=== PATIENT | female | born 1960 | race Two or more races ===

== ENCOUNTER 2024-05-24 13:24 | Emergency (ER) | payer MEDICAID, SELFPAY ==
[2024-05-24 13:34] VITALS: BP 177/111; PULSE 100; RESP 18; TEMP 36.6; O2SAT 96; BMI 26.5
--- NOTE | 2024-05-24 13:42 | XR_ITS ---
Examination: Shoulder,right, 3 views Technique: Shoulder AP internal rotation, AP external rotation, Y view shoulder, 3 views Exam date and time :May 24, 2024 1405 hrs. Indications: Injury to the shoulder 2 months ago shoulder pain Findings: Prominent calcific tendinitis Mild osteoarthritis glenohumeral joint No fracture or shoulder dislocation Impression: Prominent calcific tendinitis
[2024-05-24] MEDS: KETOROLAC INJ 30 MG/ML VIAL IM (13:52)
--- NOTE | 2024-05-24 15:42 | EDNOTE_ITS ---
Upper Extremity Injury RME/HPI General Chief Complaint: Extremity Injury, Upper Stated Complaint: RIGHT SHOULDER PAIN AND HEADACHE Time Seen by Provider: 05/24/24 13:28 Arrival date/time: 05/24/24 13:24 63-year-old female presents emergency department complaint of right shoulder pain patient reports numbness ongoing for last couple of months. Patient reports that she was helping her son who has seizures and she injured her shoulder Limitations: no limitations Related Data Home Medications ?Medication ?Instructions ?Recorded ?Confirmed lisinopril 10 mg tablet 10 mg PO QDAY 03/01/19 loratadine 10 mg tablet (Claritin) 10 mg PO QDAY 03/01/19 metformin 850 mg tablet 750 mg PO QDAY 03/01/19 montelukast 10 mg tablet 10 mg PO QPM 03/01/19 (Singulair) sitagliptin phosphate 100 mg 100 mg PO QDAY 03/01/19 tablet (Januvia) Previous Rx's ?Medication ?Instructions ?Recorded albuterol sulfate 2.5 mg/0.5 mL 5 mg inhalation Q20M PRN shortness 08/04/18 solution for nebulization of breath or wheezing #30 ea cyclobenzaprine 10 mg tablet 10 mg PO TID PRN muscle spasm 10 05/24/24 days #30 tab-caps hydrocodone 5 mg-acetaminophen 325 1 tab PO BID PRN pain #10 tabs 05/24/24 mg tablet ibuprofen 800 mg tablet 800 mg PO TID PRN pain #30 tabs 05/24/24 Allergies Allergy/AdvReac Type Severity Reaction Status Date / Time codeine AdvReac Mild Vomiting Verified 05/24/24 13:27 Review of Systems Review of Systems Systems Reviewed: All systems reviewed, normal except as documented Constitutional Constitutional: Reports system reviewed and no additional complaints, except as documented, Denies fever(s) and Denies headache(s) Eyes Eyes: Reports system reviewed and no additional complaints, except as documented and Denies blurry vision ENT Ears, Nose, Mouth, and Throat: Reports system reviewed and no additional complaints, except as documented, Denies headache(s), Denies nasal congestion and Denies nasal discharge Cardiovascular Cardiovascular: Reports system reviewed and no additional complaints, except as documented, Denies chest pain and Denies dyspnea Respiratory Respiratory: Reports system reviewed and no additional complaints, except as documented, Denies chest congestion, Denies cough and Denies dyspnea Gastrointestinal Gastrointestinal: Reports system reviewed and no additional complaints, except as documented and Denies abdominal pain Musculoskeletal Musculoskeletal: Reports system reviewed and no additional complaints, except as documented, Reports arthralgias, Denies deformity, Denies joint swelling, Denies numbness, Reports stiffness and Denies tingling Integumentary/Breasts Skin/Breast: Reports system reviewed and no additional complaints, except as documented and Denies rash Neurologic Neurologic: Reports system reviewed and no additional complaints, except as documented, Reports as per HPI, Denies headache(s), Denies numbness and Denies tingling Past Medical History Past Medical History NEUROLOGIC: Negative Neurological Disorders CARDIAC: Negative Cardiac Disorders ED Exam General Limitations: Present no limitations General appearance: Present alert and in no apparent distress Head Head exam: Present atraumatic Eye Eye exam: Present normal appearance, PERRL and EOMI ENT ENT exam: Present normal exam, normal oropharynx and mucous membranes moist Neck Neck exam: Present normal inspection, full ROM and trachea midline Chest Chest inspection: Present normal inspection and symmetric chest wall rise Respiratory Respiratory exam: Present normal lung sounds bilaterally Cardiovascular Cardiovascular exam: Present regular rate, normal rhythm and normal heart sounds Abdominal Exam Abdominal exam: Present soft and normal bowel sounds Extremities Exam Extremities exam: Present full ROM, tenderness and normal capillary refill; Absent joint swelling Back Exam Back exam: Present normal inspection and full ROM Neurological Exam Neurological exam: Present alert, oriented X3 and CN II-XII intact Psychiatric Psychiatric exam: Present normal affect and normal mood Skin Skin exam: Present warm, dry, intact and normal color Course Quality Measures none Orders Category Date Time Status sling [Splint / Immobilizer] STAT Care 05/24/24 18:08 Active XR shoulder RT min 2V Stat Exams 05/24/24 13:42 Completed Ketorolac Inj [Toradol Inj] Med 05/24/24 13:42 Discontinued 30 mg IM X1 ONE Vital Signs Vital signs: Vital Signs Temperature 98 F 05/24/24 13:34 Pulse Rate 100 05/24/24 13:34 Respiratory Rate 18 05/24/24 13:34 Blood Pressure 177/111 H 05/24/24 13:34 Pulse Oximetry (%) 96 05/24/24 13:34 Oxygen Delivery Method Room Air 05/24/24 13:34 O2 saturation 96% room air within normal limits Extremity Injury MDM Narrative MDM Narrative:: 63-year-old female presents emergency department complaint of right shoulder pain patient reports numbness ongoing for last couple of months. Patient reports that she was helping her son who has seizures and she injured her shoulder On exam patient well-appearing patient does not appear ill or toxic patient does have decreased range of motion of the shoulder Patient placed in a sling X-rays obtained patient does have calcific tendinitis I did explain to the patient she will have to have an outpatient MRI and further evaluation with primary care doctor for referral to specialist Patient data External records reviewed:: [facility] previous records Clinical information provided by:: patient Social determinants that could affect healthcare access:: none Patient has the following chronic illnesses:: See history How is presenting disease/condition affected by chronic disease/condition?: caused by Evaluation data The following diagnostics were reviewed and interpreted by me:: radiology exam(s) Lab and/or radiology exams considered but not ordered:: Radiology obtain Interpretation Summary: Reviewed by me Medications / Prescriptions Medications or Prescriptions considered but not ordered:: Given Medication administrations:: Medication Administration History Discontinued Medications Ketorolac Tromethamine (Ketorolac Inj 30 Mg/Ml Vial) 30 mg IM X1 ONE Stop: 05/24/24 13:43 Last Admin: 05/24/24 13:52 Dose: 30 mg Documented By: OA Given Consultations Consultation(s) initiated? (list below): No Diagnosis Upper Extremity Injury Differential Diagnosis: other (Shoulder sprain, shoulder fracture) Most likely diagnosis given after review of the tests above:: Calcific tendinitis Admission Indicated Admission indicated?: not indicated Admission Request Was there a request for admission?: No Disposition Plan Disposition Plan: Discharge Discharge Attestation Discharge Attestation: The patient and all family members were given an opportunity to ask questions and understood the discharge instructions. Discharge instructions specifically effects, indications for sooner follow up or return to the emergency department, and the expected course of current diagnosis. Patient condition: Stable Discharge Plan Plan Patient Disposition: HOME (Self Care) Disposition Comment: Stable Prescriptions/Referrals Prescriptions/Med Rec: New cyclobenzaprine 10 mg tablet 10 mg PO TID PRN (Reason: muscle spasm) 10 Days Qty: 30 0RF ibuprofen 800 mg tablet 800 mg PO TID PRN (Reason: pain) Qty: 30 0RF hydrocodone-acetaminophen 5-325 mg tablet 1 tab PO BID MDD 10 PRN (Reason: pain) Qty: 10 0RF No Action metformin 850 mg tablet 750 mg PO QDAY Januvia 100 mg tablet 100 mg PO QDAY loratadine [Claritin] 10 mg tablet 10 mg PO QDAY montelukast [Singulair] 10 mg tablet 10 mg PO QPM lisinopril 10 mg tablet 10 mg PO QDAY albuterol sulfate 2.5 mg/0.5 mL solution for nebulization 5 mg INH Q20M PRN (Reason: shortness of breath or wheezing) Qty: 30 0RF Rx Instructions: for 3 doses Referrals: Fracisco Poon MD [Primary Care Provider] - 05/26/24 Problem List Clinical Impression: Calcific tendinitis Patient/Caregiver Discharge Instructions Education Materials: ED Tendonitis Additional Instructions: Please follow up with your primary care doctor in the next 24-48hrs for any worsening symptoms return here immediately Please request outpatient MRI and referral to specialist Print Language: Hungarian Stand Alone Forms: [employer] Award Info., Patient Portal Info Letter PA/SHANNAN Supervising Physician ADRIANNE/SHANNAN Supervising Physician: Dr Lerner
[2024-05-24 16:54] VITALS: BP 149/85
== END 2024-05-24 17:47 | disposition home or self-care (01) ==
PROVIDERS: Emergency Provider Emergency Medicine; PCP Family Medicine
DX: S49.91XA Unspecified injury of right shoulder and upper arm, initial encounter (principal); M75.31 Calcific tendinitis of right shoulder; X58.XXXA Exposure to other specified factors, initial encounter; Y93.F9 Activity, other caregiving
CPT/HCPCS: 73030; 96372; 99283; A4565; J1885

== ENCOUNTER 2024-06-03 12:33 | Emergency (ER) | payer MEDICAID, SELFPAY ==
[2024-06-03 12:33] VITALS: BMI 26.5
--- NOTE | 2024-06-03 12:41 | XR_ITS ---
Examination: CT brain head without contrast. 2-D sagittal coronal reconstructions Date and time of exam:June 03, 2024 1301 hours INDICATIONS: Onset generalized head pain today CTDI: vol (mGy):45.8 DLP: (mGycm):908 Technique: Multiple CT axial sections of the brain have been obtained, 5 mm slice thickness. Contrast has not been administered. 2-D sagittal, coronal reconstructions have been obtained Low dose protocols were performed. One or more of the following dose reduction techniques were used; automated exposure control, adjustment of the mA and/or KV according to patient size, use of iterative reconstruction technique. Findings: No significant ventricular enlargement. Intra-axial or extra-axial hemorrhage density is not seen. No mass effect or midline shift Basal cisterns are not remarkable. Fourth ventricle is midline. Cranial vault intact. Impression: Negative for acute hemorrhage, mass effect or midline shift
[2024-06-03 12:42] VITALS: BP 170/105; BP 178/113; PULSE 106; RESP 19; TEMP 36.7; O2SAT 97
--- NOTE | 2024-06-03 12:42 | XR_ITS ---
Examination: PA lateral chest 2 views TECHNIQUE: Upright PA lateral chest 2 views Exam date and time: June 03, 2024 1250 hours Comparison December 21, 2016 INDICATIONS: Hypertension with chest pain today. FINDINGS: Normal heart size Lungs are clear. Moderate thoracic spondylosis IMPRESSION: No active disease
--- NOTE | 2024-06-03 12:42 | PD.EDRME ---
Rapid Medical Screening Exam RME Arrival date/time: 06/03/24 12:33 63-year-old female presents emerged department complaints of elevated blood pressure and headache Chief Complaint: General Adult/Misc Complain Time Seen by Provider: 06/03/24 12:38
[2024-06-03 13:13] VITALS: BP 178/113; PULSE 106
[2024-06-03] MEDS: cloNIDine HCL 0.1 MG TABLET PO (13:13)
[2024-06-03 13:30] LABS: Basophils # (Auto) 0.1 Thou/mm3 (0.0-0.2); Basophils % (Auto) 1 % (0-2.5); Eosinophils # (Auto) 0.2 Thou/mm3 (0.0-0.5); Eosinophils % (Auto) 2 % (0-10); Hematocrit 44.8 % (36.0-46.0); Hemoglobin 15.1 g/dL (12.0-16.0); Immature Granulocytes % (Auto) 0 % (0-0); Immature Granulocytes Auto 0.02 Thou/mm3 (0.00-0.00); Lymphocytes % (Auto) 33 % (10-50); Mean Corpuscular HGB Conc 33.7 g/dl (31.0-37.0); Mean Corpuscular Hemoglobin 27.8 pg (25.0-35.0); Mean Corpuscular Volume 83 fL (80-100); Monocytes # (Auto) 0.4 Thou/mm3 (0.0-0.8); Monocytes % (Auto) 4 % (0-12); Neutrophils # (Auto) 5.4 Thou/mm3 (1.8-7.7); Neutrophils % (Auto) 60 % (37-80); Nucleated Red Blood Cell % 0 /100 WBC (0); Platelet Count 291 Thou/mm3 (140-440); RDW Standard Deviation 40.2 fL (36.4-46.3); Red Blood Count 5.43 Miln/mm3 (4.00-5.20); White Blood Count 9.1 Thou/mm3 (3.6-11.0)
[2024-06-03 13:49] LABS: Alanine Aminotransferase 26 U/L (10-49); Albumin, Serum 4.9 gm/dL (3.4-4.8); Albumin/Globulin Ratio 1.5 (1.2-2.2); Alkaline Phosphatase 90 U/L (46-116); Anion Gap 10 (7-16); Aspartate Amino Transferase 18 U/L (0-34); BUN/Creatinine Ratio 21 Ratio (12-20); Bilirubin,Total 0.3 mg/dL (0.3-1.2); Blood Urea Nitrogen 15 mg/dL (9-23); Calcium 9.6 mg/dL (8.3-10.6); Calcium (Corrected) 9.6 mg/dL (8.5-10.1); Carbon Dioxide 23.7 mMol/L (20.0-31.0); Chloride 103 mMol/L (98-107); Creatinine (Component) 0.7 mg/dL (0.6-1.3); Estimated Creatinine Clearance 74.2 mL/min (>60); Globulin 3.2 gm/dL (2.3-3.5); Glucose 109 mg/dL (74-106); Osmolality,Calculated 275 (275-295); Potassium 3.7 mMol/L (3.4-5.1); Sodium 137 mMol/L (136-145); Total Protein 8.1 gm/dL (5.7-8.2); Troponin I < 0.002 ng/mL (0.0-0.045); eGFR > 60 See Note
--- NOTE | 2024-06-03 15:03 | PD.EDADULT ---
ED General RME/HPI General Chief complaint: General Adult/Misc Complain Stated complaint: HIGH BP AT CVS 178/108 Time Seen by Provider: 06/03/24 12:38 Arrival date/time: 06/03/24 12:33 CC: Headache and mild chest pressure HPI onset this morning. The patient states she noticed that her blood pressure is high after checking it at the pharmacy and came into had it checked out, patient states she takes 10 mg of lisinopril each night, per her PCP and is doing it for approximately 1 year. Patient denies fever chills shortness of breath or difficulty breathing at this time. Denies any floaters or blurred vision. RME / HPI RME / HPI narrative: 06/03/24 12:33 63-year-old female presents emerged department complaints of elevated blood pressure and headache Related Data Home Medications ?Medication ?Instructions ?Recorded ?Confirmed lisinopril 10 mg tablet 10 mg PO QDAY 03/01/19 loratadine 10 mg tablet (Claritin) 10 mg PO QDAY 03/01/19 metformin 850 mg tablet 750 mg PO QDAY 03/01/19 montelukast 10 mg tablet 10 mg PO QPM 03/01/19 (Singulair) sitagliptin phosphate 100 mg 100 mg PO QDAY 03/01/19 tablet (Januvia) Previous Rx's ?Medication ?Instructions ?Recorded albuterol sulfate 2.5 mg/0.5 mL 5 mg inhalation Q20M PRN shortness 08/04/18 solution for nebulization of breath or wheezing #30 ea hydrocodone 5 mg-acetaminophen 325 1 tab PO BID PRN pain #10 tabs 05/24/24 mg tablet ibuprofen 800 mg tablet 800 mg PO TID PRN pain #30 tabs 05/24/24 Allergies Allergy/AdvReac Type Severity Reaction Status Date / Time codeine AdvReac Mild Vomiting Verified 06/03/24 12:35 Review of Systems Review of Systems Narrative Review of Systems: GEN: No fever, no chills, no weight loss EYES: No discharge, no visual changes, no pain HEENT: No ear pain, no congestion, no sore throat PULM: No shortness of breath, no cough, no congestion CV: No chest pain, no dyspnea on exertion, no palpitations GI: No nausea, no vomiting, no diarrhea, no pain, no constipation : No frequency, no urgency, no dysuria MUSC/SKEL: No joint pain, no back pain SKIN: No rash PSYCH: No hallucinations, no depression HEME/LYMPH: No easy bleeding or bruising tendencies NEURO: No weakness, + headache Past Medical History Past Medical History NEUROLOGIC: Negative Neurological Disorders CARDIAC: Positive Hypertension; Negative Cardiac Disorders or Congestive Heart Failure RESPIRATORY: Positive Asthma; Negative Chronic Obstructive Pulmonary Disease (COPD) GENITOURINARY: Negative Renal Disease ENDOCRINE: Positive Endocrine Disorders and Diabetes Mellitus Type 2; Negative Diabetes Mellitus Type 1 OTHER HISTORY: Positive Blood Transfusions Social History SMOKING STATUS: Never smoker ED Exam Narrative Physical exam: [General: Not in any acute distress Head normocephalic HEENT: Within acceptable limits Neck is supple nontender Chest equal chest rise nontender to palpation Respiratory: Clear to auscultation no wheezes crackles or rubs CV: Rate rhythm is regular no murmurs rubs or clicks Abdomen is soft nontender no masses positive bowel sounds all 4 quadrants Back: No CVA tenderness no spinous process tenderness from cervical spine thoracic and lumbar spine Skin: Intact no petechiae rash induration ulceration or crepitus Extremities: Moving all extremity against resistance cap refill less than 2 seconds neurosensory intact. No lower extremity edema Neuro: Awake alert oriented x3 Glascow coma 15 no focal deficits] Course Quality Measures none Orders Category Date Time Status EKG (ED ONLY) *Do not use* NOW Care 06/03/24 12:[address] head/brain wo con Stat Exams 06/03/24 12:41 Completed EKG (ED Only) Stat Exams 06/03/24 12:42 Ordered XR chest 2V Stat Exams 06/03/24 12:42 Completed CBC Stat Lab 06/03/24 13:10 Completed Comprehensive Metabolic Panel Stat Lab 06/03/24 13:10 Completed Troponin I Stat Lab 06/03/24 13:10 Completed cloNIDine HCL [Catapres] Med 06/03/24 12:41 Discontinued 0.1 mg PO X1 ONE Vital Signs Vital signs: Vital Signs Temperature 98.1 F 06/03/24 12:42 Pulse Rate 106 H 06/03/24 12:42 Respiratory Rate 19 06/03/24 12:42 Blood Pressure 178/113 H 06/03/24 12:42 Pulse Oximetry (%) 97 06/03/24 12:42 Oxygen Delivery Method Room Air 06/03/24 12:42 MDM Patient data External records reviewed:: [facility] previous records Clinical information provided by:: patient Social determinants that could affect healthcare access:: none Patient has the following chronic illnesses:: Hypertension How is presenting disease/condition affected by chronic disease/condition?: exacerbated by Evaluation data The following diagnostics were reviewed and interpreted by me:: lab results and radiology exam(s) Lab and/or radiology exams considered but not ordered:: EKG performed at the 1247 shows a ventricular rate of 9 9 [place] interval 154 QRS of 100 QTc of 405 this is sinus rhythm. Troponin is negative CBC shows no acute leukocytosis anemia thrombocytopenia CMP shows no acute electrolyte imbalances renal impairment transaminitis or T. bili elevation Chest x-ray as interpreted me read by radiology as negative for any acute finding CT of the head is negative for any acute finding as interpreted by me read by radiology. Interpretation Summary: Hypertension Medications Medications considered but not ordered:: None Medication administrations:: Medication Administration History Discontinued Medications Clonidine (Clonidine Hcl 0.1 Mg Tablet) 0.1 mg PO X1 ONE Stop: 06/03/24 12:42 Last Admin: 06/03/24 13:13 Dose: 0.1 mg Documented By: None Consultations Consultation(s) initiated? (list below): No Diagnosis Differential Diagnosis ED Complaint MDM: Hypertensive urgency hypertensive emergency Most likely diagnosis given after review of the tests above:: Hypertension poor medical management Admission Indicated Admission indicated?: not indicated Explain why admission is indicated or not indicated:: Stable for outpatient follow-up Admission Request Was there a request for admission?: No Disposition Plan Disposition Plan: Discharge Discharge Attestation Discharge Attestation: The patient and all family members were given an opportunity to ask questions and understood the discharge instructions. Discharge instructions specifically effects, indications for sooner follow up or return to the emergency department, and the expected course of current diagnosis. Patient condition: Stable Medical Decision Making Differential Diagnosis Differential Diagnosis: Hypertensive urgency hypertensive emergency Lab Data 06/03/24 13:10 06/03/24 13:10 Labs: Lab Results 06/03/24 Range/Units 13:10 WBC 9.1 (3.6-11.0) Thou/mm3 RBC 5.43 H (4.00-5.20) Miln/mm3 Hgb 15.1 (12.0-16.0) g/dL Hct 44.8 (36.0-46.0) % MCV 83 (80-100) fL MCH 27.8 (25.0-35.0) pg MCHC 33.7 (31.0-37.0) g/dl RDW Std Deviation 40.2 (36.4-46.3) fL Plt Count 291 (140-440) Thou/mm3 Neut % (Auto) 60 (37-80) % Lymph % (Auto) 33 (10-50) % [place] % (Auto) 4 (0-12) % Eos % (Auto) 2 (0-10) % Baso % (Auto) 1 (0-2.5) % Neut # (Auto) 5.4 (1.8-7.7) Thou/mm3 Lymph # (Auto) 3.0 (1.0-4.8) Thou/mm3 [place] # (Auto) 0.4 (0.0-0.8) Thou/mm3 Eos # (Auto) 0.2 (0.0-0.5) Thou/mm3 Baso # (Auto) 0.1 (0.0-0.2) Thou/mm3 Immature Gran # (Auto) 0.02 H (0.00-0.00) Thou/mm3 Absolute Nucleated RBC 0.00 (0.00-0.00) Thou/mm3 Immature Gran % 0 (0-0) % Nucleated RBC % 0 (0) /100 WBC Sodium 137 (136-145) mMol/L Potassium 3.7 (3.4-5.1) mMol/L Chloride 103 (98-107) mMol/L Carbon Dioxide 23.7 (20.0-31.0) mMol/L Anion Gap 10 (7-16) BUN 15 (9-23) mg/dL Creatinine 0.7 (0.6-1.3) mg/dL Estim Creat Clear Calc 74.2 (>60) mL/min eGFR > 60 (60 - ) See Note BUN/Creatinine Ratio 21 H (12-20) Ratio Glucose 109 H (74-106) mg/dL Calculated Osmolality 275 (275-295) Calcium 9.6 (8.3-10.6) mg/dL Corrected Calcium 9.6 (8.5-10.1) mg/dL Total Bilirubin 0.3 (0.3-1.2) mg/dL AST 18 (0-34) U/L ALT 26 (10-49) U/L Alkaline Phosphatase 90 (46-116) U/L Troponin I < 0.002 (0.0-0.045) ng/mL Total Protein 8.1 (5.7-8.2) gm/dL Albumin 4.9 H (3.4-4.8) gm/dL Globulin 3.2 (2.3-3.5) gm/dL Albumin/Globulin Ratio 1.5 (1.2-2.2) Discharge Plan Plan Patient Disposition: HOME (Self Care) Patient condition on transfer: Stable Prescriptions/Referrals Prescriptions/Med Rec: No Action metformin 850 mg tablet 750 mg PO QDAY Januvia 100 mg tablet 100 mg PO QDAY loratadine [Claritin] 10 mg tablet 10 mg PO QDAY montelukast [Singulair] 10 mg tablet 10 mg PO QPM lisinopril 10 mg tablet 10 mg PO QDAY albuterol sulfate 2.5 mg/0.5 mL solution for nebulization 5 mg INH Q20M PRN (Reason: shortness of breath or wheezing) Qty: 30 0RF Rx Instructions: for 3 doses ibuprofen 800 mg tablet 800 mg PO TID PRN (Reason: pain) Qty: 30 0RF hydrocodone-acetaminophen 5-325 mg tablet 1 tab PO BID MDD 10 PRN (Reason: pain) Qty: 10 0RF Referrals: Skyler Brasher PA-C [Primary Care Provider] - In 1 week Problem List Clinical Impression: Hypertension Patient/Caregiver Discharge Instructions Education Materials: ED High Blood Pressure ... Additional Instructions: Double up on your lisinopril to 20 mg every evening, record your blood pressure twice a week, and show it to your doctor at your next follow-up. If you have a worsening of symptoms in spite of these interventions return the emergency room for reevaluation. Print Language: Pakistani Stand Alone Forms: [employer] Award Info., Work/School Release, Patient Portal Info Letter ADRIANNE/SHANNAN Supervising Physician ADRIANNE/SHANNAN Supervising Physician: Tomás Preston ENP
[2024-06-03 15:04] VITALS: BP 128/84; PULSE 84
== END 2024-06-03 15:20 | disposition home or self-care (01) ==
PROVIDERS: Nurse Practitioner Primary Care; Emergency Provider Emergency Medicine; PCP Family Medicine
DX: I10 Essential (primary) hypertension (principal)
CPT/HCPCS: 36415; 70450; 71046; 80053; 81001; 84484; 85025; 93005; 99284; A9270

== ENCOUNTER → 2024-06-30 | Outpatient (CLI) | payer MEDICAID, SELFPAY ==
--- NOTE | 2024-06-30 09:45 | XR_ITS ---
MRI shoulder, right, without contrast. Date and time: June 30, 2024 1032 hours INDICATIONS: Right shoulder pain post injury 6 months ago, loss of function 50% abduction, diagnosis calcific tendinitis Technique: Multiple axial, sagittal and coronal sections of the shoulder have been obtained. Siemens high-resolution 1.5 Елена MRI scanner is utilized. Axial fat-suppressed sections, TR 2350, TE 18 T2-weighted coronal fat-saturated images, TR 3500, TE 7100 T1-weighted coronal images, TR 500, TE 15 T2-weighted sagittal fat-saturated images, TR 3500, TE 57 T1-weighted sagittal sections, TR 504, TE 13. Findings: Supraspinatus tendon insertion is suspicious for 20 mm full-thickness tear. Infraspinatus tendon insertion is intact. Subscapularis insertion is intact. Subscapularis bursa is not seen. Long head of the biceps is in the bicipital groove. No definite tear of the biceps superior labral anchor is seen. Retraction of the musculotendinous junction of the rotator cuff is mild. Tendinosis pattern is moderate. Distance between the acromium and humeral head is 5 mm Atrophy of the supraspinatus muscle is moderate. Atrophy of the infraspinatus muscle is moderate. Sagittal sections demonstrate a horizontal acromion. Acromioclavicular joint demonstrates moderate osteoarthritis. Osacromiale is not identified. Moderate osteoarthritis glenohumeral joint. Bony glenoid fossa on the sagittal sections does not demonstrate osseous defect. Occult fracture or area of avascular necrosis is not seen. Acromioclavicular joint separation is not visible. Defect in the posterolateral margin of the humeral head is not seen Impression: Recommend this patient return for MRI shoulder with intra-articular contrast to confirm 20 mm full-thickness tear supraspinatous tendon
== END | disposition home or self-care (01) ==
PROVIDERS: PCP Family Medicine; Referring Provider Physician Assistant Medical; Visit Provider Physician Assistant Medical
DX: S46.011A Strain of muscle(s) and tendon(s) of the rotator cuff of right shoulder, initial encounter (principal); X58.XXXA Exposure to other specified factors, initial encounter; M75.31 Calcific tendinitis of right shoulder
CPT/HCPCS: 73221

== ENCOUNTER 2024-07-29 13:17 | Emergency (ER) | payer BC, SELFPAY ==
[2024-07-29 13:49] VITALS: BP 146/84; PULSE 89; RESP 18; TEMP 37.2; O2SAT 96; BMI 29.2
--- NOTE | 2024-07-29 13:57 | XR_ITS ---
Examination: PA lateral chest 2 views TECHNIQUE: Upright PA lateral chest 2 views Exam date and time: July 29, 2024 1408 hours Comparison June 03, 2024 INDICATIONS: Coughing shortness of breath beginning 3 days ago. FINDINGS: Normal heart size Suspicious for early pneumonia in the right middle lobe on the lateral view No pulmonary edema IMPRESSION: Suspicious for early pneumonia in the right middle lobe
--- NOTE | 2024-07-29 15:43 | PD.EDSOB ---
ED SOB =RME/HPI General Chief Complaint: Shortness of Breath/Dyspnea Stated Complaint: WANTS CXR, R/O PNA, SOB X3 DAYS Time Seen by Provider: 07/29/24 13:50 Arrival date/time: 07/29/24 13:17 63-year-old female with history of asthma recently diagnosed with influenza presents to the emergency department today complaints of cough, congestion, body aches Limitations: no limitations Related Data Home Medications ?Medication ?Instructions ?Recorded ?Confirmed lisinopril 10 mg tablet 10 mg PO QDAY 03/01/19 loratadine 10 mg tablet (Claritin) 10 mg PO QDAY 03/01/19 metformin 850 mg tablet 750 mg PO QDAY 03/01/19 montelukast 10 mg tablet 10 mg PO QPM 03/01/19 (Singulair) sitagliptin phosphate 100 mg 100 mg PO QDAY 03/01/19 tablet (Januvia) Previous Rx's ?Medication ?Instructions ?Recorded albuterol sulfate 2.5 mg/0.5 mL 5 mg inhalation Q20M PRN shortness 08/04/18 solution for nebulization of breath or wheezing #30 ea hydrocodone 5 mg-acetaminophen 325 1 tab PO BID PRN pain #10 tabs 05/24/24 mg tablet ibuprofen 800 mg tablet 800 mg PO TID PRN pain #30 tabs 05/24/24 azithromycin 500 mg tablet See Rx Instructions PO .COMPLEX #6 07/29/24 tabs Allergies Allergy/AdvReac Type Severity Reaction Status Date / Time codeine AdvReac Mild Vomiting Verified 07/29/24 13:20 Review of Systems Review of Systems Systems Reviewed: All systems reviewed, normal except as documented Constitutional Constitutional: Reports system reviewed and no additional complaints, except as documented, Denies fever(s) and Denies headache(s) Eyes Eyes: Reports system reviewed and no additional complaints, except as documented and Denies blurry vision ENT Ears, Nose, Mouth, and Throat: Reports system reviewed and no additional complaints, except as documented, Denies headache(s), Denies nasal congestion and Denies nasal discharge Cardiovascular Cardiovascular: Reports system reviewed and no additional complaints, except as documented, Denies chest pain and Denies dyspnea Respiratory Respiratory: Reports system reviewed and no additional complaints, except as documented, Reports chest congestion, Reports cough and Denies dyspnea Gastrointestinal Gastrointestinal: Reports system reviewed and no additional complaints, except as documented and Denies abdominal pain Integumentary/Breasts Skin/Breast: Reports system reviewed and no additional complaints, except as documented and Denies rash Neurologic Neurologic: Reports system reviewed and no additional complaints, except as documented, Reports as per HPI and Denies headache(s) Past Medical History Past Medical History NEUROLOGIC: Negative Neurological Disorders CARDIAC: Positive Hypertension; Negative Cardiac Disorders or Congestive Heart Failure RESPIRATORY: Positive Asthma; Negative Chronic Obstructive Pulmonary Disease (COPD) GENITOURINARY: Negative Renal Disease ENDOCRINE: Positive Endocrine Disorders and Diabetes Mellitus Type 2; Negative Diabetes Mellitus Type 1 OTHER HISTORY: Positive Blood Transfusions Social History SMOKING STATUS: Never smoker ED Exam General Limitations: Present no limitations General appearance: Present alert and in no apparent distress Head Head exam: Present atraumatic Eye Eye exam: Present normal appearance, PERRL and EOMI; Absent conjunctival injection ENT ENT exam: Present normal exam, normal oropharynx and mucous membranes moist Neck Neck exam: Present normal inspection, full ROM and trachea midline Chest Chest inspection: Present normal inspection and symmetric chest wall rise Respiratory Respiratory exam: Present wheezes; Absent respiratory distress, stridor, accessory muscle use or prolonged expiratory phase Cardiovascular Cardiovascular exam: Present regular rate, normal rhythm and normal heart sounds Abdominal Exam Abdominal exam: Present soft and normal bowel sounds; Absent distention, tenderness, guarding, rebound or rigidity Extremities Exam Extremities exam: Present normal inspection and full ROM Back Exam Back exam: Present normal inspection and full ROM Neurological Exam Neurological exam: Present alert, oriented X3, CN II-XII intact, normal gait and reflexes normal; Absent motor sensory deficit Psychiatric Psychiatric exam: Present normal affect and normal mood Skin Skin exam: Present warm, dry, intact and normal color; Absent rash Course Quality Measures none Orders Category Date Time Status XR chest 2V Stat Exams 07/29/24 13:57 Completed Albuterol/Ipratr Rt Kandi [Duoneb Rt Kandi] Med 07/29/24 15:43 Discontinued 3 ml INH X1 ONE Dexamethasone Inj [Decadron Inj] Med 07/29/24 15:43 Discontinued 10 mg PO X1 ONE Vital Signs Vital signs: Vital Signs Temperature 98.9 F 07/29/24 13:49 Pulse Rate 89 07/29/24 13:49 Respiratory Rate 18 07/29/24 13:49 Blood Pressure 146/84 H 07/29/24 13:49 Pulse Oximetry (%) 96 07/29/24 13:49 Oxygen Delivery Method Room Air 07/29/24 13:49 O2 saturation 96% room air wnl Shortness of Breath / Dyspnea MDM Narrative MDM Narrative:: 63-year-old female with history of asthma recently diagnosed with influenza presents to the emergency department today complaints of cough, congestion, body aches Patient is requesting x-ray x-ray consistent with pneumonia Patient will be give treatment with antibiotics On exam patient does have mild wheezing bilaterally patient given breathing treatment as well as steroids Patient discharged home in no distress to follow-up with primary care doctor in the next 24 to 48 hours and for any worsening symptoms to return to the ER immediately Patient data External records reviewed:: [facility] previous records Clinical information provided by:: patient Social determinants that could affect healthcare access:: none Patient has the following chronic illnesses:: See history How is presenting disease/condition affected by chronic disease/condition?: exacerbated by Evaluation data The following diagnostics were reviewed and interpreted by me:: radiology exam(s) Lab and/or radiology exams considered but not ordered:: radiology obtain Interpretation Summary: Reviewed by me Medications / Prescriptions Medications or Prescriptions considered but not ordered:: Given Medication administrations:: Medication Administration History Discontinued Medications Albuterol/Ipratropium (Albuterol/Ipratropium (Duoneb) Rt Kandi 3 Ml Nebu) 3 ml INH X1 ONE Stop: 07/29/24 15:44 Dexamethasone Sodium Phosphate (Dexamethasone Sod Phos Inj 10 Mg/Ml Vial) 10 mg PO X1 ONE Stop: 07/29/24 15:44 Last Admin: 07/29/24 16:28 Dose: 10 mg Documented By: EO Given Consultations Consultation(s) initiated? (list below): No Diagnosis Shortness of Breath Differential Diagnosis: congestive heart failure, asthma with exacerbation and pulmonary embolism Most likely diagnosis given after review of the tests above:: Asthma Admission Indicated Admission indicated?: not indicated Admission Request Was there a request for admission?: No Disposition Plan Disposition Plan: Discharge Discharge Attestation Discharge Attestation: The patient and all family members were given an opportunity to ask questions and understood the discharge instructions. Discharge instructions specifically effects, indications for sooner follow up or return to the emergency department, and the expected course of current diagnosis. Patient condition: Stable Discharge Plan Plan Patient Disposition: HOME (Self Care) Disposition Comment: Stable Prescriptions/Referrals Prescriptions/Med Rec: New azithromycin 500 mg tablet See Rx Instructions .ROUTE .COMPLEX Qty: 6 0RF Rx Instructions: take 500 mg today (day 1), then 250 mg for 4 days (days 2-5) No Action metformin 850 mg tablet 750 mg PO QDAY Januvia 100 mg tablet 100 mg PO QDAY loratadine [Claritin] 10 mg tablet 10 mg PO QDAY montelukast [Singulair] 10 mg tablet 10 mg PO QPM lisinopril 10 mg tablet 10 mg PO QDAY albuterol sulfate 2.5 mg/0.5 mL solution for nebulization 5 mg INH Q20M PRN (Reason: shortness of breath or wheezing) Qty: 30 0RF Rx Instructions: for 3 doses ibuprofen 800 mg tablet 800 mg PO TID PRN (Reason: pain) Qty: 30 0RF hydrocodone-acetaminophen 5-325 mg tablet 1 tab PO BID MDD 10 PRN (Reason: pain) Qty: 10 0RF Referrals: Skyler Brasher PA-C [Primary Care Provider] - In 1 week Problem List Clinical Impression: Pneumonia Patient/Caregiver Discharge Instructions Education Materials: Treating Pneumonia Additional Instructions: Please follow up with your primary care doctor in the next 24-48hrs for any worsening symptoms return here immediately Print Language: Georgian Stand Alone Forms: [employer] Info., Work/School Release, Patient Portal Info Letter PA/SHANNAN Supervising Physician PA/SHANNAN Supervising Physician: Dr. Oreilly
[2024-07-29 16:09] VITALS: PULSE 96; RESP 18; O2SAT 98
[2024-07-29] MEDS: DEXAMETHASONE SOD PHOS INJ 10 MG/ML VIAL PO (16:28)
== END 2024-07-29 16:34 | disposition home or self-care (01) ==
PROVIDERS: Emergency Provider Emergency Medicine; PCP Family Medicine
DX: J18.9 Pneumonia, unspecified organism (principal)
CPT/HCPCS: 71046; 94640; 99283; A9270; J1100

== ENCOUNTER 2024-09-25 14:30 | Outpatient (RCR) | payer BC, SELFPAY ==
--- NOTE | 2024-09-23 09:40 | PT.OIERPT ---
PT OP Initial Eval Patient Information Outpatient Physical Therapy Treatment Date: 09/23/24 Visit Reasons: Right rotator cuff repair Medical Diagnosis: V45.89 Z98.890 Treatment Dx #1: R shoulder pain Treatment Dx #2: Dec R shoulder ROM Start of Care: 09/23/24 Date of Onset: 09/11/24 Smoking Status Smoking Status: Never smoker Initial Assessment Subjective: Pt is 63 yr old female s/p R shoulder A/S supraspinatus repair, SAD wearing sling full-time reports low pain, it aches after a couple hours and I take an ibuprofen and it goes away. PMH: HTN, DM Pt goal: to use and move the shoulder without pain Objective: R shoulder PROM: FF: 80 deg Abd: 70 deg Erot: 35 deg AROM: NT Assessment: Pt presentation consistent with post op RCR and SAD with decreased ROM, strength and function with reaching. Pt has moderate tissue irritability with PROM today and requires skilled therapy in order to decrease pain and improve ROM and strength and has fair rehab potential. Eval followed by HEP and printout. Short Term and Residential Goals 1. Ind with HEP 2. Improved PROM of R shoulder to at least 145 deg FF and abduction, ER to 90 deg 3. Improved AROM of R shoulder to at least 145 deg FF and 130 abduction, ER to 80 deg after transitioning to AROM phase of protocol around post op week 7-8 once PROM is close to pain free. 4. Pt will reach OH x10 in order to reach tall cabinets.? Treatment Plan 1. Manual therapy ? 2. Therex ? 3. Modalities as indicated, moist heat, ice, estim Frequency and Duration: 2x a week for 24 visits Certification Dates: 09/23/24 to 12/24/24 Procedure Charges OP PT Eval Mod Complex 30 minutes: Yes
--- NOTE | 2024-09-25 18:37 | PT.ODAYNRPT ---
PT Outpatient Daily Note OP Daily Note Outpatient Physical Therapy Treatment Date: 09/25/24 Visit Reasons: Right rotator cuff repair Subjective: Same as time of eval Objective: See F/S for therex Assessment: Good AAROM with therex Plan: Continue per POC Length of Time (minutes) of Treatment: 30 Minutes Procedure Charges Therapeutic Exercise 30 minutes: Yes
== END 2024-09-29 23:59 | disposition home or self-care (01) ==
LOC: CPTX 14:30
PROVIDERS: PCP Family Medicine; Referring Provider Nurse Practitioner; Visit Provider Nurse Practitioner
DX: M25.511 Pain in right shoulder (principal); Z98.890 Other specified postprocedural states; I10 Essential (primary) hypertension; E11.9 Type 2 diabetes mellitus without complications
CPT/HCPCS: 97110; 97162

== ENCOUNTER 2024-10-29 09:00 | Outpatient (RCR) | payer BC, SELFPAY ==
--- NOTE | 2024-09-30 13:30 | PT.ODAYNRPT ---
PT Outpatient Daily Note OP Daily Note Outpatient Physical Therapy Treatment Date: 09/30/24 Visit Reasons: left shoulder surgery Subjective: Low pain at rest, pain with stretching Objective: See F/S for therex MT: PROM into FF,abd, ER x7' Assessment: Good AAROM with therex. Pt tends to guard with PROM but improved ROM today Plan: Continue per POC Length of Time (minutes) of Treatment: 30 Minutes Procedure Charges Therapeutic Exercise 30 minutes: Yes
--- NOTE | 2024-10-02 13:10 | PT.ODAYNRPT ---
PT Outpatient Daily Note OP Daily Note Outpatient Physical Therapy Treatment Date: 10/02/24 Visit Reasons: left shoulder surgery Subjective: Doing HEP with better ROM to put R hand behind her head Objective: See F/S for therex MT: PROM into FF,abd, ER x7' Assessment: Good AAROM with therex. Pt tends to guard with PROM but improved ROM today Plan: Continue per POC Length of Time (minutes) of Treatment: 30 Minutes Procedure Charges Therapeutic Exercise 30 minutes: Yes
--- NOTE | 2024-10-07 13:10 | PT.ODAYNRPT ---
PT Outpatient Daily Note OP Daily Note Outpatient Physical Therapy Treatment Date: 10/07/24 Visit Reasons: left shoulder surgery Subjective: Pt reports shoulder is doing ok, has a follow up with surgeon soon. Pt continues to use arm sling. Objective: Please see flow sheet for ther ex list. Assessment: Pt instructed on how to preform pendulums exercise, verbal cues and demonstration to perform as AAROM pt complied. Plan: Continue with pOC. Length of Time (minutes) of Treatment: 30 Minutes Procedure Charges Therapeutic Exercise 30 minutes: Yes
--- NOTE | 2024-10-21 10:34 | PT.ODAYNRPT ---
PT Outpatient Daily Note OP Daily Note Outpatient Physical Therapy Treatment Date: 10/21/24 Visit Reasons: left shoulder surgery Subjective: Pt reports she fell into the door at home getting into the shower but didn't hit the floor with some soreness in R shoulder Objective: See F/S for therex Assessment: More tissue irritability today of R shoulder with AAROM therex and she left a few minutes early due to pain/spasming of R shoulder. Plan: Continue per POC Length of Time (minutes) of Treatment: 25 Minutes Procedure Charges Therapeutic Exercise 30 minutes: Yes
--- NOTE | 2024-10-29 10:06 | PT.ODAYNRPT ---
PT Outpatient Daily Note OP Daily Note Outpatient Physical Therapy Treatment Date: 10/29/24 Visit Reasons: left shoulder surgery Subjective: Pt reports L shoulder is doing ok, followed up with MD pt no longer has to wear sling. Objective: Please see flow sheet for ther ex list. Assessment: Pt instructed on light isometric strengthening, pt demonstrated upper trap recruitment but corrects post verbal cues. Plan: Continue with poC. Length of Time (minutes) of Treatment: 30 Minutes Procedure Charges Therapeutic Exercise 30 minutes: Yes
== END 2024-10-29 23:59 | disposition home or self-care (01) ==
LOC: CPTX 09:00
PROVIDERS: PCP Nurse Practitioner; Referring Provider Nurse Practitioner; Visit Provider Nurse Practitioner
DX: M25.511 Pain in right shoulder (principal); I10 Essential (primary) hypertension; E11.9 Type 2 diabetes mellitus without complications; Z98.890 Other specified postprocedural states
CPT/HCPCS: 97110

== ENCOUNTER 2024-11-18 16:00 | Outpatient (RCR) | payer BC, SELFPAY ==
--- NOTE | 2024-11-04 16:02 | PT.ODAYNRPT ---
PT Outpatient Daily Note OP Daily Note Outpatient Physical Therapy Treatment Date: 11/04/24 Visit Reasons: Left shoulder surgery Subjective: Pt reports shoulder is doing better, does light stretches at home. Objective: Please see flow sheet for ther ex list. Assessment: Pt demonstrates increase ROM during AAROM interventions indicating progress. Tactile cues and demonstration to perform scapular retraction with good technique and avoid upper trap recruitment. Plan: Progress per post op protocol . Length of Time (minutes) of Treatment: 30 Minutes Procedure Charges Therapeutic Exercise 30 minutes: Yes
--- NOTE | 2024-11-11 18:05 | PT.ODAYNRPT ---
PT Outpatient Daily Note OP Daily Note Outpatient Physical Therapy Treatment Date: 11/11/24 Visit Reasons: Left shoulder surgery Subjective: Wants to reach behind the back more. Doing HEP Objective: See F/S for therex Assessment: Pt is transitioning to AROM well with some mild pain into abduction in sidelying Plan: Improve A/PROM of L shoulder Length of Time (minutes) of Treatment: 30 Minutes Procedure Charges Therapeutic Exercise 30 minutes: Yes
--- NOTE | 2024-11-13 18:28 | PT.ODAYNRPT ---
PT Outpatient Daily Note OP Daily Note Outpatient Physical Therapy Treatment Date: 11/13/24 Visit Reasons: Left shoulder surgery Subjective: Wants to reach behind the back more. Doing HEP Objective: See F/S for therex MT: PROM into FF, abduction x5' Assessment: Pt is transitioning to AROM well with some mild pain into abduction in sidelying Plan: Improve A/PROM of L shoulder Length of Time (minutes) of Treatment: 30 Minutes Procedure Charges Therapeutic Exercise 30 minutes: Yes
--- NOTE | 2024-11-18 17:41 | PT.ODAYNRPT ---
PT Outpatient Daily Note OP Daily Note Outpatient Physical Therapy Treatment Date: 11/18/24 Visit Reasons: Left shoulder surgery Subjective: Wants to reach behind the back more. Doing HEP Objective: See F/S for therex MT: PROM into FF, abduction x5' Assessment: Pt is transitioning to AROM well with some mild pain into abduction in sidelying Plan: Improve A/PROM of L shoulder Length of Time (minutes) of Treatment: 30 Minutes Procedure Charges Therapeutic Exercise 30 minutes: Yes
== END 2024-11-29 23:59 | disposition home or self-care (01) ==
LOC: CPTX 16:00
PROVIDERS: PCP Nurse Practitioner; Referring Provider Nurse Practitioner; Visit Provider Nurse Practitioner
DX: M25.511 Pain in right shoulder (principal); Z98.890 Other specified postprocedural states; I10 Essential (primary) hypertension; E11.9 Type 2 diabetes mellitus without complications
CPT/HCPCS: 97110

== ENCOUNTER 2024-12-15 16:00 | Outpatient (RCR) | payer BC, SELFPAY ==
--- NOTE | 2024-12-01 16:34 | PT.ODAYNRPT ---
PT Outpatient Daily Note OP Daily Note Outpatient Physical Therapy Treatment Date: 12/01/24 Visit Reasons: Left shoulder surgery Subjective: Pt reports L shoulder is doing better. Objective: Please see flow sheet for ther ex list. Assessment: Progressing interventions per post op protocol. Plan: Continue with pOC. Length of Time (minutes) of Treatment: 30 Minutes Procedure Charges Therapeutic Exercise 30 minutes: Yes
--- NOTE | 2024-12-03 16:09 | PT.ODS1RPT ---
PT OP Progress/Discharge Note Date of Service: 12/03/24 Progress Note/DC Note Progress Note/Discharge Note: Progress Note Patient Information Visit Reasons: Left shoulder surgery Service Continue Service or Discharge: Continue Service Status Subjective: Better ROM. Doing HEP Objective: See F/S for therex Assessment: Pt is transitioning to AROM well with improved ROM and some mild pain into abduction in sidelying Plan: Improve A/PROM of L shoulder Procedure Charges Therapeutic Exercise 30 minutes: Yes
--- NOTE | 2024-12-15 16:17 | PT.ODAYNRPT ---
PT Outpatient Daily Note OP Daily Note Outpatient Physical Therapy Treatment Date: 12/15/24 Visit Reasons: Left shoulder surgery Subjective: Pt reports shoulder is doing better, would like to work on strengthening. Objective: Please see flow sheet for there x list. Assessment: Progressing interventions per post op protocol, pt 13 weeks post op. Plan: Continue with POC. Length of Time (minutes) of Treatment: 30 Minutes Procedure Charges Therapeutic Exercise 30 minutes: Yes
--- NOTE | 2024-12-25 17:49 | PT.ODS1RPT ---
PT OP Progress/Discharge Note Date of Service: 12/25/24 Progress Note/DC Note Progress Note/Discharge Note: DC Note Patient Information Visit Reasons: Left shoulder surgery Service Continue Service or Discharge: Discharge Discharge Date: 12/25/24 Status Assessment: Pt attended 13 Rx sessions plus the eval and was making good progress with goals and then she canceled her next two appointments and called to say she wants to be done with therapy since it interferes with work schedule and she's doing better. Plan: Self-D/C
== END 2024-12-29 23:59 | disposition home or self-care (01) ==
LOC: CPTX 16:00
PROVIDERS: PCP Nurse Practitioner; Referring Provider Nurse Practitioner; Visit Provider Nurse Practitioner
DX: M25.511 Pain in right shoulder (principal); Z98.890 Other specified postprocedural states; I10 Essential (primary) hypertension; E11.9 Type 2 diabetes mellitus without complications
CPT/HCPCS: 97110

== ENCOUNTER 2025-05-06 12:37 | Emergency (ER) | payer BC, SELFPAY ==
[2025-05-06 13:07] VITALS: BP 147/80; PULSE 86; RESP 16; TEMP 36.7; O2SAT 96
--- NOTE | 2025-05-06 13:10 | XR_ITS ---
Examination: CT abdomen and pelvis without contrast. Coronal 3-D reconstructions. Sagittal 2-D reconstructions. Date and time of exam: 05/06/2025, 2:34 p.m. INDICATION: Complaint of left-sided flank pain. COMPARISON: None CTDI: vol (mGy): 6.74 DLP: (mGycm): 410 Technique: Axial images of the abdomen have been obtained, 3 mm slice thickness Intravenous contrast material has not been administered. Low dose protocols were performed. One or more of the following dose reduction techniques were used; automated exposure control, adjustment of the mA and/or KV according to patient size, use of iterative reconstruction technique. Findings: Lack of intravenous contrast limits evaluation of solid organs, vasculature, and lymph nodes. Lower thorax: No pleural effusions. No airspace consolidation. Heart size is within normal limits. Scattered calcific plaque the visualized aorta. Liver: Diffuse hepatic steatosis. Hepatic size is within normal limits. Biliary system: No calcified gallstones or findings concerning for acute cholecystitis or biliary ductal obstruction. Spleen: Within normal limits of size. No discrete mass. Pancreas: No contour deforming mass or overt main pancreatic duct dilatation. No evidence for acute inflammation. Adrenal glands: No significant findings. Kidneys: No contour-deforming solid mass. No calculi or hydronephrosis. Bladder: No calculi or discrete mass. Pelvic organs: Hysterectomy sequela without concerning mass or collection in the surgical bed. Bowel/Peritoneal cavity: Limited assessment without IV and oral contrast as well as segments of underdistention. No contour deforming mass. Mild grade acute diverticulitis is present along the anterior inferior margin of the descending colon without evidence for perforation. The appendix is normal. Pelvic floor prolapse with mild rectocele noted. No ascites or free air. No concerning peritoneal thickening. Lymph nodes/retroperitoneum: No pathologically enlarged lymph nodes or other masses. No hematoma or other abnormal collections. Vessels: No abdominal aortic aneurysm. Scattered calcific plaque throughout the abdominal aorta. Abdominal/Pelvic wall: No significant hernia or abnormal collection. Musculoskeletal: Multifocal degenerative changes with otherwise no evidence for recent fracture or aggressive lesion. IMPRESSION: Low-grade acute uncomplicated diverticulitis of the distal descending colon. Hepatic steatosis. Pelvic floor prolapse with mild rectocele.
[2025-05-06 13:25] LABS: Collection Type, Urine Clean Catch
[2025-05-06 13:30] LABS: Basophils # (Auto) 0.1 Thou/mm3 (0.0-0.2); Basophils % (Auto) 1 % (0-2.5); Eosinophils # (Auto) 0.3 Thou/mm3 (0.0-0.5); Eosinophils % (Auto) 3 % (0-10); Hematocrit 44.0 % (36.0-46.0); Hemoglobin 14.3 g/dL (12.0-16.0); Immature Granulocytes Auto 0.03 Thou/mm3 (0.00-0.00); Lymphocytes # (Auto) 3.4 Thou/mm3 (1.0-4.8); Lymphocytes % (Auto) 35 % (10-50); Mean Corpuscular HGB Conc 32.5 g/dl (31.0-37.0); Mean Corpuscular Hemoglobin 27.3 pg (25.0-35.0); Mean Corpuscular Volume 84 fL (80-100); Monocytes # (Auto) 0.4 Thou/mm3 (0.0-0.8); Monocytes % (Auto) 5 % (0-12); Neutrophils # (Auto) 5.6 Thou/mm3 (1.8-7.7); Neutrophils % (Auto) 57 % (37-80); Nucleated Red Blood Cell # 0.00 Thou/mm3 (0.00-0.00); Nucleated Red Blood Cell % 0 /100 WBC (0); Platelet Count 294 Thou/mm3 (140-440); RDW Standard Deviation 42.1 fL (36.4-46.3); Red Blood Count 5.24 Miln/mm3 (4.00-5.20); White Blood Count 9.8 Thou/mm3 (3.6-11.0)
[2025-05-06 13:35] LABS: Bilirubin,Urine Negative (Negative); Blood,Urine Negative (Negative); Clarity,Urine Clear (Clear/Hazy); Color,Urine Lt-Yellow (Lt Yel-Yel); Culture Indicated,Urine Not Indicated; Glucose, Urine 4+ (Negative); Hyaline Casts,Urine < 1 /hpf (0-1); Ketones,Urine Negative (Negative); Leukocyte Esterase,Urine Negative (Negative); Nitrite,Urine Negative (Negative); PH,Urine 5.5 (5.0-7.0); Protein,Urine Negative (Neg - Trace); RBC,Urine 1 /hpf (0-3); Specific Gravity,Urine 1.018 (1.001-1.035); Squamous Epithelial Cell,Urine 1 /hpf (0-5); Urobilinogen,Urine Negative mg/dL (0.0-1.0); WBC,Urine 4 /hpf (0-5)
[2025-05-06 13:44] LABS: Alanine Aminotransferase 30 U/L (10-49); Albumin, Serum 4.9 gm/dL (3.4-4.8); Albumin/Globulin Ratio 1.6 (1.2-2.2); Alkaline Phosphatase 88 U/L (46-116); Anion Gap 11 (7-16); Aspartate Amino Transferase 24 U/L (0-34); BUN/Creatinine Ratio 15 Ratio (12-20); Bilirubin,Total 0.2 mg/dL (0.3-1.2); Blood Urea Nitrogen 15 mg/dL (9-23); Calcium 9.9 mg/dL (8.3-10.6); Calcium (Corrected) 9.9 mg/dL (8.5-10.1); Carbon Dioxide 22.6 mMol/L (20.0-31.0); Chloride 107 mMol/L (98-107); Creatinine (Component) 1.0 mg/dL (0.6-1.3); Globulin 3.1 gm/dL (2.3-3.5); Glucose 109 mg/dL (74-106); Lipase 45 U/L (12-53); Osmolality,Calculated 283 (275-295); Potassium 4.0 mMol/L (3.4-5.1); Sodium 141 mMol/L (136-145); Total Protein 8.0 gm/dL (5.7-8.2); eGFR > 60 See Note
--- NOTE | 2025-05-06 15:42 | EDNOTE_ITS ---
<Statement entered by Angela Barnes MD - 05/06/25 17:52> As co-signing physician, I was present and available for consult prn. I concur with the plan and care as documented by the midlevel provider. ED General RME/HPI General Chief complaint: General Adult/Misc Complain Stated complaint: PAIN L) SIDE 2 DAYS (01/08) Time Seen by Provider: 05/06/25 13:10 Arrival date/time: 05/06/25 12:37 64-year-old female presents to the Emergency Department today for complaints of left lower quadrant abdominal pain patient for symptom onset 2 days ago Limitations: no limitations Related Data Home Medications ?Medication ?Instructions ?Recorded ?Confirmed lisinopril 10 mg tablet 10 mg PO QDAY 03/01/19 loratadine 10 mg tablet (Claritin) 10 mg PO QDAY 03/01 metformin 850 mg tablet 750 mg PO QDAY 03/01/19 montelukast 10 mg tablet 10 mg PO QPM 03/01/19 (Singulair) sitagliptin phosphate 100 mg 100 mg PO QDAY 03/01/19 tablet (Januvia) Previous Rx's ?Medication ?Instructions ?Recorded albuterol sulfate 2.5 mg/0.5 mL 5 mg inhalation Q20M P RN shortness 08/04/18 solution for nebulization of breath or wheezing #30 ea hydrocodone 5 mg-acetaminophen 325 1 tab PO BID PRN pa in #10 tabs 05/24/24 mg tablet ibuprofen 800 mg tablet 800 mg PO TID PRN pain #30 t abs 05/24/24 azithromycin 500 mg tablet See Rx Instructions PO .COM PLEX #6 07/29/24 tabs ciprofloxacin HCl 500 mg tablet 500 mg PO BID 7 days # 14 tabs 05/06/25 hydrocodone 5 mg-acetaminophen 325 1 tab PO BID PRN pa in #8 tabs 05/06/25 mg tablet metronidazole 500 mg tablet 500 mg PO TID 7 days #21 t abs 05/06/25 Allergies Allergy/AdvReac Type Severity Reaction Status Date / Time corn Allergy Verified 05/06/25 17:00 peanut Allergy Verified 05/06/25 17:00 codeine AdvReac Mild Vomiting Verified 05/06/25 12:40 Review of Systems Review of Systems Systems Reviewed: All systems reviewed, normal except as documented Constitutional Constitutional: Reports system reviewed and no additional complaints, except as documented, Denies fever(s) and Denies headache(s) Eyes Eyes: Reports system reviewed and no additional complaints, except as documented and Denies blurry vision ENT Ears, Nose, Mouth, and Throat: Reports system reviewed and no additional complaints, except as documented, Denies headache(s), Denies nasal congestion and Denies nasal discharge Cardiovascular Cardiovascular: Reports system reviewed and no additional complaints, except as documented, Denies chest pain and Denies dyspnea Respiratory Respiratory: Reports system reviewed and no additional complaints, except as documented, Denies chest congestion, Denies cough and Denies dyspnea Gastrointestinal Gastrointestinal: Reports system reviewed and no additional complaints, except as documented and Reports abdominal pain Integumentary/Breasts Skin/Breast: Reports system reviewed and no additional complaints, except as documented and Denies rash Neurologic Neurologic: Reports system reviewed and no additional complaints, except as documented, Reports as per HPI and Denies headache(s) Past Medical History Past Medical History NEUROLOGIC: Negative Neurological Disorders CARDIAC: Positive Hypertension; Negative Cardiac Disorders or Congestive Heart Failure RESPIRATORY: Positive Asthma; Negative Chronic Obstructive Pulmonary Disease (COPD) GENITOURINARY: Negative Renal Disease ENDOCRINE: Positive Endocrine Disorders and Diabetes Mellitus Type 2; Negative Diabetes Mellitus Type 1 OTHER HISTORY: Positive Blood Transfusions Social History SMOKING STATUS: Never smoker ED Exam General Limitations: Present no limitations General appearance: Present alert and in no apparent distress Head Head exam: Present atraumatic Eye Eye exam: Present normal appearance, PERRL and EOMI ENT ENT exam: Present normal exam, normal oropharynx and mucous membranes moist Neck Neck exam: Present normal inspection, full ROM and trachea midline Chest Chest inspection: Present normal inspection and symmetric chest wall rise Respiratory Respiratory exam: Present normal lung sounds bilaterally Cardiovascular Cardiovascular exam: Present regular rate, normal rhythm and normal heart sounds Abdominal Exam Abdominal exam: Present soft, tenderness and normal bowel sounds; Absent distention, guarding, rebound or rigidity Abdominal tenderness: Present LLQ Extremities Exam Extremities exam: Present normal inspection and full ROM Back Exam Back exam: Present normal inspection and full ROM Neurological Exam Neurological exam: Present alert, oriented X3 and CN II-XII intact Psychiatric Psychiatric exam: Present normal affect and normal mood Skin Skin exam: Present warm, dry, intact and normal color Course Quality Measures none Orders Category Date Time Status CT abdomen pelvis wo con Stat Exams 05/06/25 13:10 Completed CBC Stat Lab 05/06/25 13:18 Completed Comprehensive Metabolic Panel Stat Lab 05/06/25 13:18 Completed Lipase Stat Lab 05/06/25 13:18 Completed UA, C/S IF [Urinalysis, C/S if Indicated] Stat Lab 05/06/25 13:18 Completed Lidocaine 1% 20 ml [Xylocaine 1% 20 ML] Med 05/06/25 15:45 Discontinued 2.1 ml INFL X1 ONE cefTRIAXone [Rocephin] Med 05/06/25 15:45 Discontinued 1,000 mg IM X1 ONE Vital Signs Vital signs: Vital Signs Temperature 98.1 F 05/06/25 13:07 Pulse Rate 86 05/06/25 13:07 Respiratory Rate 16 05/06/25 13:07 Blood Pressure 147/80 H 05/06/25 13:07 Pulse Oximetry (%) 96 05/06/25 13:07 Oxygen Delivery Method Room Air 05/06/25 13:07 O2 saturation 9 6% room air within normal limits Discharge Plan Plan Patient Disposition: HOME (Self Care) Discharge Disposition comment: Stable Prescriptions/Referrals Prescriptions/Med Rec: New metronidazole 500 mg tablet 500 mg PO TID 7 Days Qty: 21 0RF ciprofloxacin HCl 500 mg tablet 500 mg PO BID 7 Days Qty: 14 0RF hydrocodone-acetaminophen 5-325 mg tablet 1 tab PO BID MDD 10 PRN (Reason: pain) Qty: 8 0RF No Action metformin 850 mg tablet 750 mg PO QDAY Januvia 100 mg tablet 100 mg PO QDAY loratadine [Claritin] 10 mg tablet 10 mg PO QDAY montelukast [Singulair] 10 mg tablet 10 mg PO QPM lisinopril 10 mg tablet 10 mg PO QDAY albuterol sulfate 2.5 mg/0.5 mL solution for nebulization 5 mg INH Q20M PRN (Reason: shortness of breath or wheezing) Qty: 30 0RF Rx Instructions: for 3 doses azithromycin 500 mg tablet See Rx Instructions .ROUTE .COMPLEX Qty: 6 0RF Rx Instructions: take 500 mg today (day 1), then 250 mg for 4 days (days 2-5) ibuprofen 800 mg tablet 800 mg PO TID PRN (Reason: pain) Qty: 30 0RF hydrocodone-acetaminophen 5-325 mg tablet 1 tab PO BID MDD 10 PRN (Reason: pain) Qty: 10 0RF Referrals: Fracisco Poon MD [Primary Care Provider, Family Practice] - In 1 week Problem List Clinical Impression: Diverticulitis Patient/Caregiver Discharge Instructions Education Materials: ED Diverticulitis Additional Instructions: Please follow up with your primary care doctor in the next 24-48hrs for any worsening symptoms return here immediately Print Language: Estonian Stand Alone Forms: [employer] Award Info., Patient Portal Info Letter PA/KNIFE SHARPENER Supervising Physician PA/KNIFE SHARPENER Supervising Physician: dr barnes MDM Narrative MDM hospital course (for use when minimal MDM required): 64-year-old female presents to the Emergency Department today for complaints of left lower quadrant abdominal pain patient for symptom onset 2 days ago On exam patient well-appearing patient does not appear ill or toxic distress Lab work and imaging obtained Lab work consistent with diverticulitis Patient on Rocephin discharged with antibiotics and pain medication Patient discharged home in no distress to follow-up with primary care doctor in the next 24 to 48 hours and for any worsening symptoms to return to the ER immediately Clinical Information Provided by: patient Medical Records reviewed [facility] Meds/Rx considered, not ordered describe: Given Labs/Rad/Tests considered, not ordered Describe: Obtain Chronic Illness/Social Conditions which may negatively complicate care or outcome(s)-explain: None or not applicable EKG EKG not done Labs Labs: interpreted by me Imaging Imaging interpretation: interpreted by me Medication Administration(s) none Medication Administration History Discontinued Medications Ceftriaxone Sodium (Ceftriaxone Sod Inj 1,000 Mg Vial) 1,000 mg IM X1 ONE Stop: 05/06/25 15:46 Last Admin: 05/06/25 16:53 Dose: 1,000 mg Documented By: Lidocaine HCl (Lidocaine Hcl 1% 20 Ml Vial) 2.1 ml INFL X1 ONE Stop: 05/06/25 15:46 Last Admin: 05/06/25 16:52 Dose: 2.1 ml Documented By: Given Diagnosis Differential Diagnosis ED Complaint MDM: Appendicitis, gastroenteritis, UTI, colitis
[2025-05-06] MEDS: LIDOCAINE HCL 1% 20 ML VIAL 2.1 ML INFL (16:52)
[2025-05-06] MEDS: cefTRIAXone SOD INJ 1,000 MG VIAL 1000 MG IM (16:53)
== END 2025-05-06 17:16 | disposition home or self-care (01) ==
PROVIDERS: Emergency Provider Nurse Practitioner Primary Care; PCP Family Medicine
DX: K57.32 Diverticulitis of large intestine without perforation or abscess without bleeding (principal)
CPT/HCPCS: 36415; 74176; 80053; 81001; 83690; 85025; 96372; 99283; J0696; J3490

== ENCOUNTER 2025-05-11 15:47 | Emergency (ER) | payer BC, SELFPAY ==
[2025-05-11 15:48] VITALS: BMI 25.6
--- NOTE | 2025-05-11 16:09 | XR_ITS ---
Examination: CT abdomen and pelvis without contrast. Coronal 3-D reconstructions. Sagittal 2-D reconstructions. Date and time of exam: May 11, 2025, 1616 hours INDICATIONS: Onset generalized abdominal pain today COMPARISON: May 06, 2025 CTDI: vol (mGy): 7.36 DLP: (mGycm): 400 Technique: Axial images of the abdomen have been obtained, 3 mm slice thickness Intravenous contrast material has not been administered. Low dose protocols were performed. One or more of the following dose reduction techniques were used; automated exposure control, adjustment of the mA and/or KV according to patient size, use of iterative reconstruction technique. Findings: Small pericardial effusion No focal liver or splenic lesions No gallstones No pancreatic or adrenal mass Moderate renal scar formation No renal or ureteral calculi Tiny fat-containing umbilical hernia Colonic diverticulosis Minimal acute diverticulitis distal descending colon axial image 133, no peridiverticular abscess Normal appendix Contracted urinary bladder No pelvic mass IMPRESSION: Normal appendix Minimal acute diverticulitis distal descending colon, no peridiverticular abscess
--- NOTE | 2025-05-11 16:09 | PD.EDRME ---
Rapid Medical Screening Exam [facility] Arrival date/time: 05/11/25 15:47 64-year-old female with a history of hypertension, type 2 diabetes, diverticulitis presents to the emergency room with a chief complaint of left lower quadrant abdominal pain, nausea, vomiting x 1 week. Patient states she was seen here on 05/06/2025 and was told she has diverticulitis and sent home with oral antibiotics. Patient states her symptoms have progressively gotten worse. I have greeted and performed a focused initial assessment of this patient. A comprehensive ED assessment and evaluation of the patient, analysis of all test results, and completion of the medical decision making process will be conducted by additional ED providers. Chief Complaint: Abdominal Pain Vital signs reviewed by provider: Yes Exam: Left lower quadrant abdominal pain with palpation Clear bilateral lung sounds Clinical Impression: Diverticulosis/diverticulitis/gastroenteritis
[2025-05-11 16:11] VITALS: BP 136/82; PULSE 100; RESP 18; TEMP 36.8; O2SAT 98
[2025-05-11 16:58] LABS: Collection Type, Urine Clean Catch
[2025-05-11 17:00] LABS: Basophils # (Auto) 0.1 Thou/mm3 (0.0-0.2); Basophils % (Auto) 1 % (0-2.5); Eosinophils # (Auto) 0.2 Thou/mm3 (0.0-0.5); Eosinophils % (Auto) 2 % (0-10); Hematocrit 44.1 % (36.0-46.0); Hemoglobin 14.3 g/dL (12.0-16.0); Immature Granulocytes Auto 0.03 Thou/mm3 (0.00-0.00); Lymphocytes # (Auto) 3.8 Thou/mm3 (1.0-4.8); Lymphocytes % (Auto) 33 % (10-50); Mean Corpuscular HGB Conc 32.4 g/dl (31.0-37.0); Mean Corpuscular Hemoglobin 27.2 pg (25.0-35.0); Mean Corpuscular Volume 84 fL (80-100); Monocytes # (Auto) 0.6 Thou/mm3 (0.0-0.8); Monocytes % (Auto) 5 % (0-12); Neutrophils # (Auto) 6.9 Thou/mm3 (1.8-7.7); Neutrophils % (Auto) 59 % (37-80); Nucleated Red Blood Cell # 0.00 Thou/mm3 (0.00-0.00); Nucleated Red Blood Cell % 0 /100 WBC (0); Platelet Count 292 Thou/mm3 (140-440); RDW Standard Deviation 41.9 fL (36.4-46.3); Red Blood Count 5.25 Miln/mm3 (4.00-5.20); White Blood Count 11.6 Thou/mm3 (3.6-11.0)
[2025-05-11 17:36] LABS: Alanine Aminotransferase 32 U/L (10-49); Albumin, Serum 4.6 gm/dL (3.4-4.8); Albumin/Globulin Ratio 1.6 (1.2-2.2); Alkaline Phosphatase 70 U/L (46-116); Anion Gap 11 (7-16); Aspartate Amino Transferase 38 U/L (0-34); BUN/Creatinine Ratio 15 Ratio (12-20); Bilirubin,Total 0.4 mg/dL (0.3-1.2); Blood Urea Nitrogen 12 mg/dL (9-23); Calcium 9.1 mg/dL (8.3-10.6); Calcium (Corrected) 9.1 mg/dL (8.5-10.1); Carbon Dioxide 26.6 mMol/L (20.0-31.0); Chloride 102 mMol/L (98-107); Creatinine (Component) 0.8 mg/dL (0.6-1.3); Estimated Creatinine Clearance 63.0 mL/min (>60); Globulin 2.8 gm/dL (2.3-3.5); Glucose 100 mg/dL (74-106); Lipase 63 U/L (12-53); Osmolality,Calculated 279 (275-295); Potassium 3.4 mMol/L (3.4-5.1); Sodium 140 mMol/L (136-145); Total Protein 7.4 gm/dL (5.7-8.2); eGFR > 60 See Note
[2025-05-11 17:37] LABS: Bilirubin,Urine Negative (Negative); Blood,Urine Negative (Negative); Clarity,Urine Clear (Clear/Hazy); Color,Urine Yellow (Lt Yel-Yel); Glucose, Urine 2+ (Negative); Hyaline Casts,Urine < 1 /hpf (0-1); Ketones,Urine 1+ (Negative); Leukocyte Esterase,Urine Positive (Negative); Nitrite,Urine Negative (Negative); PH,Urine 5.5 (5.0-7.0); Protein,Urine 1+ (Neg - Trace); RBC,Urine 1 /hpf (0-3); Specific Gravity,Urine 1.020 (1.001-1.035); Squamous Epithelial Cell,Urine 4 /hpf (0-5); Urobilinogen,Urine Negative mg/dL (0.0-1.0); WBC,Urine 8 /hpf (0-5)
[2025-05-11 20:06] VITALS: BP 136/82; PULSE 94; RESP 18; TEMP 37.2; O2SAT 97
--- NOTE | 2025-05-11 20:21 | EDNOTE_ITS ---
ED General RME/HPI General Chief complaint: Abdominal Pain Stated complaint: ABD PAIN/VOMITING FOR 5 DAYS, SEEN LAST WEEK Time Seen by Provider: 05/11/25 20:15 Arrival date/time: 05/11/25 15:47 CC: Nausea and vomiting for the past 2 days HPI patient was seen here 6 days ago for abdominal pain left lower quadrant was diagnosed with diverticulitis and started on antibiotics. 3 days ago the patient started to become nauseated with persistent vomiting. Patient now has sore ribs, states she still hurts in the l eft lower quadrant but is mostly focused on her sore ribs and nausea vomiting. Patient is currently mildly nauseated but not in any acute distress. RME / HPI RME / HPI narrative: 05/11/25 15:47 64-year-old female with a history of hypertension, type 2 diabetes, diverticulitis presents to the emergency room with a chief complaint of left lower quadrant abdominal pain, nausea, vomiting x 1 week. Patient states she was seen here on 05/06/2025 and was told she has diverticulitis and sent home with oral antibiotics. Patient states her symptoms have progressively gotten worse. I have greeted and performed a focused initial assessment of this patient. A comprehensive ED assessment and evaluation of the patient, analysis of all test results, and completion of the medical decision making process will be conducted by additional ED providers. Exam: Left lower quadrant abdominal pain with palpation Clear bilateral lung sounds Impression: Diverticulosis/diverticulitis/gastroenteritis Related Data Home Medications ?Medication ?Instructions ?Recorded ?Confirmed lisinopril 10 mg tablet 10 mg PO QDAY 03/01/19 loratadine 10 mg tablet (Claritin) 10 mg PO QDAY 03/01 metformin 850 mg tablet 750 mg PO QDAY 03/01/19 montelukast 10 mg tablet 10 mg PO QPM 03/01/19 (Singulair) sitagliptin phosphate 100 mg 100 mg PO QDAY 03/01/19 tablet (Januvia) Previous Rx's ?Medication ?Instructions ?Recorded albuterol sulfate 2.5 mg/0.5 mL 5 mg inhalation Q20M P RN shortness 08/04/18 solution for nebulization of breath or wheezing #30 ea hydrocodone 5 mg-acetaminophen 325 1 tab PO BID PRN pa in #10 tabs 05/24/24 mg tablet ibuprofen 800 mg tablet 800 mg PO TID PRN pain #30 t abs 05/24/24 azithromycin 500 mg tablet See Rx Instructions PO .COM PLEX #6 07/29/24 tabs ciprofloxacin HCl 500 mg tablet 500 mg PO BID 7 days # 14 tabs 05/06/25 hydrocodone 5 mg-acetaminophen 325 1 tab PO BID PRN pa in #8 tabs 05/06/25 mg tablet metronidazole 500 mg tablet 500 mg PO TID 7 days #21 t abs 05/06/25 dicyclomine 20 mg tablet 20 mg PO BID #14 tabs ondansetron 4 mg disintegrating 4 mg PO Q8H #10 tabs 1 07/11/24 tablet Allergies Allergy/AdvReac Type Severity Reaction Status Date / Time corn Allergy Severe Rash Verified 05/11/25 15:50 peanut Allergy Severe Hives Verified 05/11/25 15:50 codeine AdvReac Severe Vomiting Verified 05/11/25 15:50 Review of Systems Review of Systems Narrative Review of Systems: GEN: No fever, no chills, no weight loss EYES: No discharge, no visual changes, no pain HEENT: No ear pain, no congestion, no sore throat PULM: No shortness of breath, no cough, no congestion CV: No chest pain, no dyspnea on exertion, no palpitations GI: + nausea, + vomiting, no diarrhea, + pain, no constipation : No frequency, no urgency, no dysuria MUSC/SKEL: No joint pain, no back pain SKIN: No rash PSYCH: No hallucinations, no depression HEME/LYMPH: No easy bleeding or bruising tendencies NEURO: No weakness, no headache Past Medical History Past Medical History NEUROLOGIC: Negative Neurological Disorders CARDIAC: Positive Hypertension; Negative Cardiac Disorders or Congestive Heart Failure RESPIRATORY: Positive Asthma; Negative Chronic Obstructive Pulmonary Disease (COPD) GENITOURINARY: Negative Renal Disease ENDOCRINE: Positive Endocrine Disorders and Diabetes Mellitus Type 2; Negative Diabetes Mellitus Type 1 OTHER HISTORY: Positive Blood Transfusions Social History SMOKING STATUS: Never smoker ED Exam Narrative Physical exam: [General: In mild discomfort but not in any acute distress Head normocephalic HEENT: Within acceptable limits Neck is supple nontender Chest equal chest rise nontender to palpation Respiratory: Clear to auscultation no wheezes crackles or rubs CV: Rate rhythm is regular no murmurs rubs or clicks Abdomen left lower quadrant abdominal pain no reflexive guarding no rebound tenderness no right lower quadrant or upper abdominal pain with deep palpation. Positive bowel sounds all 4 quadrants Back: No CVA tenderness no spinous process tenderness from cervical spine thoracic and lumbar spine Skin: Intact no petechiae rash induration ulceration or crepitus Extremities: Moving all extremity against resistance cap refill less than 2 seconds neurosensory intact Neuro: Awake alert oriented x3 Glascow coma 15 no focal deficits] Course Course Course Narrative: I am not sure if the patient's clinical presentation today is related to the antibiotics or the actual diverticulitis. At this time after discussion with the patient we have agreed to stop the antibiotics and start her on Bentyl and Zofran. Patient is to take antibiotic holiday and try these medications along with drinking plenty of fluids. Patient advised if there is a worsening of symptoms return the emergency room. Quality Measures none Orders Category Date Time Status CT abdomen pelvis wo con Stat Exams 05/11/25 16:09 Completed CBC Stat Lab 05/11/25 16:36 Completed CMP [Comprehensive Metabolic Panel] Stat Lab 05/11/25 16:36 Completed Lipase Stat Lab 05/11/25 16:36 Completed UA [Urinalysis] Stat Lab 05/11/25 16:35 Completed Urine Culture Stat Lab 05/11/25 16:35 Received Vital Signs Vital signs: Vital Signs Temperature 98.2 F 05/11/25 16:11 Pulse Rate 100 05/11/25 16:11 Respiratory Rate 18 05/11/25 16:11 Blood Pressure 136/82 H 05/11/25 16:11 Pulse Oximetry (%) 98 05/11/25 16:11 Oxygen Delivery Method Room Air 05/11/25 16:11 Discharge Plan Plan Patient Disposition: HOME (Self Care) Patient condition on transfer: Stable Prescriptions/Referrals Prescriptions/Med Rec: New dicyclomine 20 mg tablet 20 mg PO BID Qty: 14 0RF ondansetron 4 mg tablet,disintegrating 4 mg PO Q8H Qty: 10 0RF No Action metformin 850 mg tablet 750 mg PO QDAY Januvia 100 mg tablet 100 mg PO QDAY loratadine [Claritin] 10 mg tablet 10 mg PO QDAY montelukast [Singulair] 10 mg tablet 10 mg PO QPM lisinopril 10 mg tablet 10 mg PO QDAY albuterol sulfate 2.5 mg/0.5 mL solution for nebulization 5 mg INH Q20M PRN (Reason: shortness of breath or wheezing) Qty: 30 0RF Rx Instructions: for 3 doses azithromycin 500 mg tablet See Rx Instructions .ROUTE .COMPLEX Qty: 6 0RF Rx Instructions: take 500 mg today (day 1), then 250 mg for 4 days (days 2-5) metronidazole 500 mg tablet 500 mg PO TID 7 Days Qty: 21 0RF ciprofloxacin HCl 500 mg tablet 500 mg PO BID 7 Days Qty: 14 0RF hydrocodone-acetaminophen 5-325 mg tablet 1 tab PO BID MDD 10 PRN (Reason: pain) Qty: 8 0RF ibuprofen 800 mg tablet 800 mg PO TID PRN (Reason: pain) Qty: 30 0RF hydrocodone-acetaminophen 5-325 mg tablet 1 tab PO BID MDD 10 PRN (Reason: pain) Qty: 10 0RF Referrals: Skyler Brasher PA-C [Primary Care Provider] - In 1 week Problem List Clinical Impression: Nausea & vomiting, Diverticulitis Patient/Caregiver Discharge Instructions Other Activity Instructions:: Stop taking the antibiotics, start the Bentyl and the ondansetron for nausea. Drink plenty of water follow-up with your primary care doctor this or worsening of symptoms including a spiking a fever return immediately to the emergent reach to room for reevaluation. Education Materials: ED Diverticulitis, ED Vomiting (Adult) Print Language: Korean Stand Alone Forms: [employer] Award Info., Patient Portal Info Letter, Work/School Release PA/SHANNAN Supervising Physician PA/CUSHION MAKER HAND Supervising Physician: Tomás Preston ENP [facility] Clinical Information Provided by: patient Medical Records reviewed [facility] Meds/Rx considered, not ordered None Labs/Rad/Tests considered, not ordered None Chronic Illness/Social Conditions which may negatively complicate care or outcome(s)-explain: None or not applicable EKG EKG not done Labs Labs: interpreted by ca Lab(s) Interpretation(s): CBC shows a mild leukocytosis of 11.5 no anemia thrombocytopenia CMP shows no significant electrolyte imbalances renal impairment transaminitis or T. bili elevation Lipase is at 63 which is mildly elevated from a week ago. Urine shows 1+ protein 2+ glucose 1+ ketones, leukocyte esterase positive WBCs at 8 no bacteria. Imaging Imaging interpretation: interpreted by ca Imaging Interpretation(s): Minimal ascending acute diverticulitis Diagnosis Differential Diagnosis ED Complaint MDM: Diverticulitis ileus obstruction
[2025-05-11] MEDS: ONDANSETRON ODT 4 MG TABRAP PO (20:28)
== END 2025-05-11 20:31 | disposition home or self-care (01) ==
PROVIDERS: Nurse Practitioner Family; Emergency Provider Emergency Medicine; PCP Family Medicine
DX: K57.32 Diverticulitis of large intestine without perforation or abscess without bleeding (principal); R11.2 Nausea with vomiting, unspecified
CPT/HCPCS: 36415; 74176; 80053; 81001; 83690; 85025; 87086; 99283; Q0162